=== PATIENT | female | born 1960 | race Caucasian/White ===

== ENCOUNTER 2019-01-17 15:54 | Emergency (ER) | payer OTHER ==
[~2019-01-17] VITALS: Ht 167.6 cm; Wt 92.1 kg
[~2019-01-17 15:54] MED LIST: ATOM40CA PO; CELE200C PO; LEVO75TA5 PO; NEBI5TAB2 PO; SERT100T PO
--- NOTE | 2019-01-17 17:04 | PHYS DOC ---
Past History Past Medical History: No Pertinent History (FACUNDO GARCIA DO) Past Surgical History: Other Additional Past Surgical Histo: root canal (DEBBIE ARNOLD DO) Alcohol Use: Occasionally Drug Use: None (DEBBIE ARNOLD DO) Smoking: Non-smoker (FACUNDO GARCIA DO) Adult General Chief Complaint Chief Complaint: DENTAL PROBLEM HPI HPI Patient is a 58-year-old female reports pain and swelling of her left face after having a root canal 2 days ago. Reports it is doing better. Reports she was sent here by the oral surgeon on post for evaluation and imaging. She denies any fever. Denies any foul taste in the mouth. Denies any new bleeding. Reports the procedure took 3 hours. Reports continued pain. Symptoms are moderate to severe.[] (DEBBIE ARNOLD DO) Review of Systems Review of Systems Constitutional: Denies fever or chills [] Eyes: Denies change in visual acuity, redness, or eye pain [] HENT: Denies nasal congestion or sore throat, see history of present illness [] Respiratory: Denies cough or shortness of breath [] Cardiovascular: No chest pain or palpitations[] GI: Denies abdominal pain, nausea, vomiting, bloody stools or diarrhea [] : Denies dysuria or hematuria [] Musculoskeletal: Denies back pain or joint pain [] Integument: Denies rash or skin lesions [] Neurologic: Denies headache, focal weakness or sensory changes [] Endocrine: Denies polyuria or polydipsia [] All other systems were reviewed and found to be within normal limits, except as documented in this note. (DEBBIE ARNOLD DO) Allergies Allergies Allergies Coded Allergies Type Severity Reaction Last Updated Verified No Known Drug Allergies 08/01/14 No (DEBBIE ARNOLD DO) Physical Exam Physical Exam Constitutional: Well developed, well nourished, no acute distress, non-toxic appearance. [] HENT: Normocephalic, swelling of the left face. There is bruising along the gingival line around tooth #15. Along with bruising along the buccal surface. Diffuse tenderness. No active bleeding. No trismus. No peritonsillar swelling or uvular deviation. bilateral external ears normal, oropharynx moist, no oral exudates, nose normal. [] Eyes: PERRLA, EOMI, conjunctiva normal, no discharge. [] Neck: Normal range of motion, no tenderness, supple, no stridor. [] Cardiovascular:Heart rate regular rhythm, no murmur [] Lungs & Thorax: Bilateral breath sounds clear to auscultation [] Abdomen: Not examined[] Skin: Warm, dry, no erythema, no rash. [] Back: No tenderness, no CVA tenderness. [] Extremities: No tenderness, no cyanosis, no clubbing, ROM intact, no edema. [] Neurologic: Alert and oriented X 3, normal motor function, normal sensory function, no focal deficits noted. [] Psychologic: Affect normal, judgement normal, mood normal. [] (DEBBIE ARNOLD DO) Physical Exam Constitutional: Well developed, well nourished, no acute distress, non-toxic dennis earance HENT: Normocephalic, atraumatic, oropharynx moist, left maxillary 1st molar with filling noted and gingival swelling which is tender to palpation, no fluctuance noted Eyes: Conjunctiva normal, no discharge Neck: Normal range of motion, supple Cardiovascular: Heart rate normal, regular rhythm Lungs & Thorax: No respiratory distress Skin: Warm, dry, no erythema, no rash Neurologic: Alert and oriented X 3 (FACUNDO GARCIA DO) EKG EKG [] (DEBBIE ARNOLD DO) Radiology/Procedures Radiology/Procedures [] (DEBBIE ARNOLD DO) Radiology/Procedures PROCEDURE: CT MAXILLOFACIAL W/CONTRAST INDICATION: Recent root canal with pain and swelling COMPARISON: None. TECHNIQUE: Axial CT images obtained through the face. Contrast was utilized. One or more of the following individualized dose reduction techniques were utilized for this examination: 1. Automated exposure control; 2. Adjustment of the mA and/or kV according to patient size; 3. Use of iterative reconstruction technique. FINDINGS: Postoperative changes to the mandible and maxilla identified with hardware seen. Mucosal thickening left maxillary sinus. Artifact from the patient's dental hardware limits evaluation. There is some edema to the soft tissues at the left side of the face. IMPRESSION: 1. There is some haziness to the fat at the left side of the face. Could be postprocedural in nature or infectious. Adjacent to the left maxilla there is a subtle region of low density measuring up to approximately 7 mm. Could be confluent edema or an early fluid collection/phlegmon within the region. 2. Partial opacification of the left maxillary sinus. 3. At the partially visualized brain there is a high density lesion measuring up to about 11 mm. On prior MRI the patient had a colloid cyst within the region and this could be secondary to a colloid cyst. Electronically signed by: Roscoe Boyd MD (01/17/2019 8:09 PM) [facility] (FACUNDO GARCIA DO) Course & Med Decision Making Course & Med Decision Making Pertinent Labs and Imaging studies reviewed. (See chart for details) ED course: Patient arrived, was placed in bed, and tolerated exam well. IV access was established and patient was sent to CT. As contrast was starting, patient's IV line was found to be not functional. She was returned back to the room to have IV access reestablished. Her care was delayed due to more critical patient requiring attention in the emergency department and CT assets. Patient care was endorsed to the nighttime physician at [address] scan pending.[] (DEBBIE ARNOLD DO) Course & Med Decision Making 1800- Sign out obtained from Dr. Arnold for patient with concern for dental abscess s/p root canal. Patient pending CT results. Patient seen and evaluated by myself. Labs reviewed. CT with findings of 7mm area concerning for post operative edema vs early abscess formation. Patient currently treated on Amoxil. Decision to change to Clindamycin. Symptomatic steroids also provided. Patient stable for discharge with outpatient follow-up with PCP/dentist. Discussed findings and plan with patient and family, who acknowledge understand ing and agreement. (FACUNDO GARCIA DO) Dragon Disclaimer Dragon Disclaimer This electronic medical record was generated, in whole or in part, using a voice recognition dictation system. (DEBBIE ARNOLD DO) Departure Departure: Impression: Primary Impression: Dentalgia Additional Impression: History of recent dental procedure Disposition: HOME, SELF-CARE Condition: STABLE Referrals: ENEIDA HSIEH DO (PCP) Patient Instructions: Dental Pain, [id number] Additional Instructions: Discontinue Amoxicillin. Use prescribed antibiotics, mouth rinse, and steroid as prescribed. Follow closely with your dentist. Scripts Prednisone (PREDNISONE) 20 Mg Tablet 2 TAB PO DAILY for Dental swelling, #8 TAB Start this medication tomorrow, 01/18/19 Prov: FACUNDO GARCIA DO 01/17/19 Chlorhexidine Gluconate (PERIDEX) 15 Ml Mouthwash 15 ML PO BID for Dental problem, #946 ML Prov: FACUNDO GARCIA DO 01/17/19 Clindamycin Hcl (CLINDAMYCIN HCL) 300 Mg Capsule 1 CAP PO TID for Dental problem for 7 Days, #21 CAP Prov: FACUNDO GARCIA DO 01/17/19 Problem Qualifiers DEBBIE ARNOLD DO Jan 17, 2019 17:04 FACUNDO GARCIA DO Jan 17, 2019 20:43
[2019-01-17] MEDS ORDERED: IOHEXOL 300 MG/ML 75 ML VIAL. IV ONE (17:30)
[2019-01-17 18:06] LABS: BASO % 1 % (0-3); EOS # 0.1 x10^3/uL (0.0-0.7); EOS % 1 % (0-3); HEMATOCRIT 44.6 % (36.0-47.0); HEMOGLOBIN 15.2 g/dL (12.0-15.5); LYMPH # 1.8 x10^3/uL (1.0-4.8); LYMPH % 27 % (24-48); MEAN CORPUSCULAR HEMOGLOBIN 32 pg (25-35); MEAN CORPUSCULAR HGB CONC 34 g/dL (31-37); MEAN CORPUSCULAR VOLUME 93 fL (79-100); MONO # 0.6 x10^3/uL (0.0-1.1); MONO % 9 % (0-9); NEUT # 4.1 x10^3uL (1.8-7.7); NEUT % 63 % (31-73); PLATELET COUNT 202 x10^3/uL (140-400); RED BLOOD COUNT 4.82 x10^6/uL (3.50-5.40); RED CELL DISTRIBUTION WIDTH 13.3 % (11.5-14.5); WHITE BLOOD COUNT 6.5 x10^3/uL (4.0-11.0)
[2019-01-17 18:22] LABS: CALCIUM 9.9 mg/dL (8.5-10.1); CREATININE 0.8 mg/dL (0.6-1.0); GFR 73.9; POTASSIUM 3.4 mmol/L (3.5-5.1)
--- NOTE | 2019-01-17 20:12 | RAD ---
INDICATION: Recent root canal with pain and swelling COMPARISON: None. TECHNIQUE: Axial CT images obtained through the face. Contrast was utilized. One or more of the following individualized dose reduction techniques were utilized for this examination: 1. Automated exposure control; 2. Adjustment of the mA and/or kV according to patient size; 3. Use of iterative reconstruction technique. FINDINGS: Postoperative changes to the mandible and maxilla identified with hardware seen. Mucosal thickening left maxillary sinus. Artifact from the patient's dental hardware limits evaluation. There is some edema to the soft tissues at the left side of the face. IMPRESSION: 1. There is some haziness to the fat at the left side of the face. Could be postprocedural in nature or infectious. Adjacent to the left maxilla there is a subtle region of low density measuring up to approximately 7 mm. Could be confluent edema or an early fluid collection/phlegmon within the region. 2. Partial opacification of the left maxillary sinus. 3. At the partially visualized brain there is a high density lesion measuring up to about 11 mm. On prior MRI the patient had a colloid cyst within the region and this could be secondary to a colloid cyst. Electronically signed by: Roscoe Boyd MD (01/17/2019 8:09 PM) [facility]
[2019-01-17] MEDS ORDERED: CHLO15MO2 PO (20:43)
[2019-01-17] MEDS ORDERED: CLIN300C8 PO (20:43)
[2019-01-17] MEDS ORDERED: PRED20TA PO (20:43)
[2019-01-17] MEDS ORDERED: AMOXICILLIN/K CLAV 875/125MG TABLET. PO ONE (20:45)
[2019-01-17] MEDS ORDERED: DEXAMETHASONE 4 MG TABLET PO ONE (20:45)
[2019-01-17] MEDS ORDERED: CLINDAMYCIN HCL 150 MG CAPSULE PO ONE (21:00)
[2019-01-17] MEDS ORDERED: CLINDAMYCIN HCL 150 MG CAPSULE ONE (21:00)
== END 2019-01-17 21:05 | disposition home or self-care (01) ==
LOC: ER 15:54
DX: S00.532A Contusion of oral cavity, initial encounter (principal); K08.89 Other specified disorders of teeth and supporting structures; X58.XXXA Exposure to other specified factors, initial encounter; Y93.89 Activity, other specified; Y92.89 Other specified places as the place of occurrence of the external cause; Y99.8 Other external cause status
CPT/HCPCS: 36415; 70487; 80048; 85025; 99285; J8540; Q9967

== ENCOUNTER 2020-08-25 17:19 | Emergency (ER) | payer MEDICARE, OTHER ==
[~2020-08-25] VITALS: Ht 167.6 cm; Wt 84.0 kg
[~2020-08-25 17:19] MED LIST changes: +CHLO15MO2 PO; +CLIN300C9 PO; +PRED20TA PO
[2020-08-25 17:34] VITALS: BP 175/92
--- NOTE | 2020-08-25 17:44 | PHYS DOC ---
Past History Past Medical History: Depression, Hypertension, Other Additional Past Medical Histor: TBI (SHARONA CAIN MD) Past Surgical History: Hip Replacement, Other Additional Past Surgical Histo: FACE SURGERY (SHARONA CAIN MD) Smoking: Non-smoker Alcohol Use: Occasionally Drug Use: None (SHARONA CAIN MD) General Adult EDM: Chief Complaint: TOE PROBLEM HPI: HPI: Patient is a 60-year-old female coming in for left fifth toe pain and swelling. 20 minutes prior to arrival accidentally kicked it into the corner of a coffee table. Denies any bleeding. Is able to ambulate with a limp. No other injuries. Patient states she otherwise has been well. Takes muscle relaxers daily and took 1 for the pain. (SHARONA CAIN MD) Review of Systems: Review of Systems: All other systems within normal limits except for as noted in the HPI (SHARONA CAIN MD) Allergies: Allergies: Allergies Coded Allergies Type Severity Reaction Last Updated Verified No Known Drug Allergies 08/01/14 No (SHARONA CAIN MD) Physical Exam: PE: Constitutional: Well developed, well nourished, no acute distress, non-toxic appearance. [] HENT: Normocephalic, atraumatic, bilateral external ears normal, nose normal. [] Eyes: PERRLA, conjunctiva normal, no discharge. [] Neck: No rigidity, supple, no stridor. [] Cardiovascular: Regular rate and rhythm, brisk cap refill [] Lungs & Thorax: Non labored symmetric respirations, no tachypnea or respiratory distress [] Abdomen: Soft, nondistended. Skin: Warm, dry, no erythema, no rash. [] Back: Unremarkable Extremities: No deformities, range of motion grossly intact, no lower extremity edema. Left pinky toe swollen, erythematous and tender. No bruising or obvious deformity. [] Neurologic: Alert and oriented X 3, no focal deficits noted. [] Psychologic: Affect normal, judgement normal, mood normal. [] (SHARONA CAIN MD) Current Patient Data: Vital Signs: Vital Signs Date Time Temp Pulse Resp B/P (MAP) Pulse Ox O2 Delivery O2 Flow Rate FiO2 08/25/20 17:34 96.6 98 16 175/92 (119) 96 Room Air (SHARONA CAIN MD) EKG: EKG: [] (SHARONA CAIN MD) Radiology/Procedures: Radiology/Procedures: [] (SHARONA CAIN MD) Heart Score: Risk Factors: Risk Factors: DM, Current or recent (<one month) smoker, HTN, HLP, family history of CAD, obesity. Risk Scores: Score 0 - 3: 2.5% MACE over next 6 weeks - Discharge Home Score 4 - 6: 20.3% MACE over next 6 weeks - Admit for Clinical Observation Score 7 - 10: 72.7% MACE over next 6 weeks - Early Invasive Strategies (SHARONA CAIN MD) Course & Med Decision Making: Course & Med Decision Making Placed in Ortho postop shoe and fourth and fifth toes bony taped. Pending x- rays at shift change. Care transition toed Dr. Gordon (SHARONA CAIN MD) Course & Med Decision Making Did not see or evaluate patient. Patient was discharged before beginning of my shift. (JAMESON GORDON MD) Dragon Disclaimer: Dragon Disclaimer: This electronic medical record was generated, in whole or in part, using a voice recognition dictation system. (SHARONA CAIN MD) Departure Departure: Impression: Primary Impression: Fracture of fifth toe, left, closed Disposition: 01 DC HOME SELF CARE/HOMELESS Condition: STABLE Referrals: ENEIDA HSIEH DO (PCP) Patient Instructions: Bony Taping of Toes SHARONA CAIN MD Aug 25, 2020 17:44 JAMESON GORDON MD Aug 25, 2020 18:18
--- NOTE | 2020-08-25 18:00 | RAD ---
Study: XR LT TOE 2+ VIEWS Indication: Fifth toe pain. Comparison: None. Findings: Obliquely orientated fracture of the fifth ray proximal phalanx. On the lateral view this appears to approach but not definitively extend into the IP joint. Minimal displacement along the medial margin of the fracture by up to 1.5 mm. Lucency on the lateral view at the base of the fifth ray intermediate phalanx could represent a chron ic erosion given an apparent sclerotic margin. The appearance would be atypical for an acute fracture . Additional lucency along the medial margin of the distal phalanx on the AP view but without a corre late on the lateral view to confirm a fracture. Impression: 1. Acute, minimally displaced fracture of the fifth ray proximal phalanx without definitive intra-art icular extension. 2. Findings at the plantar margin of the fifth ray intermediate phalanx and medial margin of the dist al phalanx not seen on all views and therefore not definitively additional fractures. Attention on fo llow-up if performed. Electronically signed by: MELVIN SMITH MD (08/25/2020 5:58 PM) [facility]
== END 2020-08-25 18:12 | disposition home or self-care (01) ==
LOC: ER 17:19
DX: S92.512A Displaced fracture of proximal phalanx of left lesser toe(s), initial encounter for closed fracture (principal); I10 Essential (primary) hypertension; W22.09XA Striking against other stationary object, initial encounter; Y93.89 Activity, other specified; Y92.89 Other specified places as the place of occurrence of the external cause; Y99.8 Other external cause status
CPT/HCPCS: 73660; 99283